=== PATIENT | male | born 1990 | race Caucasian/White ===

== ENCOUNTER 2017-02-11 14:06 | Emergency (ER) | payer SELFPAY ==
--- NOTE | 2017-02-22 21:34 | ER ---
ADMIT: 02/11/2017 RM/LOC: ER [facility] MR#: [id number] [address] [id number] [address] [place] [address] [place] [address] Emergency Room Report SEX: M AGE: 26 : 1990 DATE: 02/11/2017 This 26-year-old, comes in with palpitations, chest discomfort. He had been snorting Vicodin and Lortab when these symptoms developed. See T-sheet for history and physical. EKG was within normal parameters. The patient was encouraged to stop abusing narcotics and follow up with his primary as needed. DIAGNOSIS: Palpitations. Jordon Benz MD/ quinn JOB #: [id number] CC: Jordon Benz MD, Attending Physician Kash Mendoza MD, Family Physician
== END 2017-02-11 14:45 | disposition home or self-care (01) ==
LOC: ER 14:06
DX: R00.2 Palpitations (principal); F17.210 Nicotine dependence, cigarettes, uncomplicated